=== PATIENT | female | born 1935 | race Caucasian/White ===

== ENCOUNTER → 2018-04-28 16:39 | Outpatient (CLI) | payer MEDICARE, BC, SELFPAY ==
[2018-04-28 18:16] LABS: ALB/GLOB Ratio 1.1 RATIO (0.9-2.4); AST(SGOT) 24 U/L (15-37); Alanine Aminotransfer ALT/SGPT 26 U/L (13-56); Albumin, Serum 3.9 g/dL (3.2-5.0); Alkaline Phosphatase 50 U/L (45-117); Anion Gap 7 (5-15); BUN 23 mg/dL (7-18); BUN/Creat Ratio 19.5 RATIO (10-20); Calcium,Total 8.6 mg/dL (8.5-10.1); Chloride 101 mmol/L (98-107); Creatinine, Serum 1.18 mg/dL (0.55-1.02); EST Glomerular Filtration Rate 47 mL/min (>60); Est Glom Filt Rate - Afr Amer 56 mL/min (>60); Globulin 3.7 g/dL (2.2-4.2); Glucose 94 mg/dL (74-106); Potassium 4.1 mmol/L (3.5-5.1); Protein, Total 7.6 g/dL (6.4-8.2); Sodium Level 135 mmol/L (136-145); Thyroid Stim Hormone (TSH) 1.78 uIU/mL (0.358-3.74)
[2018-04-28 18:44] LABS: Absolute Lymphocyte Count 2.34 X10^3/ul (0.83-4.51); Absolute Neutrophil Count 2.9 X10^3/uL (2.0-7.7); Basophil# 0.04 X10^3/uL; Basophil% 0.7 % (0-1); Eosinophil# 0.25 X10^3/uL; Eosinophils% 4.1 % (0-5); Hematocrit 33.4 % (37-47); Hemoglobin 11.3 g/dl (12.0-15.0); Lymphocyte # 2.34 X10^3/ul (4.0); Lymphocyte % 38.3 % (19-41); Mean Corp Hgb Conc 33.8 g/gl (32-36); Mean Corpuscular Volume 100.6 fL (81-99); Mean Platelet Vol. 8.9 fl (6.2-12.0); Monocyte# 0.52 X10^3/uL; Monocyte% 8.5 % (0-10); Neutrophil # 2.94 X10^3/uL (2.7-7.7); Neutrophil % 48.1 % (47-70); Platelet Count 273 K/mm3 (150-450); RBC Distribution Width CV 13.4 % (11.6-14.6); RBC Distribution Width SD 47.9 fl (35.1-43.9); Red Blood Count 3.32 M/mm3 (4.2-5.4); White Blood Count 6.1 K/mm3 (4.4-11.0)
[2018-04-28 19:04] LABS: POSITIVE COUNT NO; POSITIVE DIFFERENTIAL NO; POSITIVE MORPHOLOGY NO
[2018-04-29 20:43] LABS: Vitamin B12 683 pg/mL (211-911)
== END ==
PROVIDERS: Family Provider Family Medicine; PCP Family Medicine; Visit Provider Family Medicine
DX: M79.89 Other specified soft tissue disorders (principal)
CPT/HCPCS: 36415; 80053; 82607; 82746; 84443; 85025

== ENCOUNTER → 2018-05-20 14:07 | Outpatient (CLI) | payer MEDICARE, BC, SELFPAY ==
[2018-05-20 15:57] LABS: Absolute Lymphocyte Count 2.17 X10^3/ul (0.83-4.51); Absolute Neutrophil Count 3.1 X10^3/uL (2.0-7.7); Basophil# 0.04 X10^3/uL; Basophil% 0.6 % (0-1); Eosinophil# 0.41 X10^3/uL; Eosinophils% 6.4 % (0-5); Hematocrit 34.2 % (37-47); Hemoglobin 11.3 g/dl (12.0-15.0); Lymphocyte # 2.17 X10^3/ul (4.0); Mean Corpuscular Hgb 33.6 pg (27.0-32.0); Mean Corpuscular Volume 101.8 fL (81-99); Mean Platelet Vol. 8.8 fl (6.2-12.0); Monocyte# 0.63 X10^3/uL; Monocyte% 9.9 % (0-10); Neutrophil % 48.6 % (47-70); Platelet Count 278 K/mm3 (150-450); RBC Distribution Width CV 13.5 % (11.6-14.6); RBC Distribution Width SD 48.9 fl (35.1-43.9); Red Blood Count 3.36 M/mm3 (4.2-5.4); White Blood Count 6.4 K/mm3 (4.4-11.0)
[2018-05-20 15:59] LABS: POSITIVE COUNT NO; POSITIVE DIFFERENTIAL NO; POSITIVE MORPHOLOGY NO
[2018-05-20 16:02] LABS: ALB/GLOB Ratio 1.1 RATIO (0.9-2.4); AST(SGOT) 27 U/L (15-37); Alanine Aminotransfer ALT/SGPT 29 U/L (13-56); Albumin, Serum 4.1 g/dL (3.2-5.0); Alkaline Phosphatase 48 U/L (45-117); Anion Gap 7 (5-15); BUN 22 mg/dL (7-18); BUN/Creat Ratio 19.1 RATIO (10-20); Calcium,Total 9.1 mg/dL (8.5-10.1); Chloride 102 mmol/L (98-107); Creatinine, Serum 1.15 mg/dL (0.55-1.02); EST Glomerular Filtration Rate 48 mL/min (>60); Est Glom Filt Rate - Afr Amer 58 mL/min (>60); Globulin 3.8 g/dL (2.2-4.2); Glucose 90 mg/dL (74-106); Potassium 4.1 mmol/L (3.5-5.1); Protein, Total 7.9 g/dL (6.4-8.2); Sodium Level 135 mmol/L (136-145)
== END ==
PROVIDERS: Family Provider Family Medicine; PCP Family Medicine; Visit Provider Family Medicine
DX: K52.9 Noninfective gastroenteritis and colitis, unspecified (principal)
CPT/HCPCS: 36415; 80053; 85025

== ENCOUNTER 2018-09-01 11:58 | Observation (INO) | payer MEDICARE, BC, SELFPAY ==
[2018-09-01] VITALS (8 sets, daily range): BP systolic 109–140; BP diastolic 54–86; PULSE 59–72; RESP 16–18; TEMP 35.8–37.1; O2SAT 95–100; BMI 22.6; BMI 24.4
--- NOTE | 2018-09-01 12:19 | RAD_ITS ---
STUDY: X-RAY CHEST REASON FOR EXAM: Female, 83 years old. Syncope. Confusion. TECHNIQUE: Single AP portable view of the chest. COMPARISON: None. FINDINGS: EKG electrodes are seen. Scattered calcified granulomas. No acute abnormality is seen. There is no demonstrated pleural abnormality. Normal size heart. Normal mediastinum and jayshree. Normal visualized pulmonary arteries. There is atherosclerotic tortuosity of the aortic arch and descending thoracic aorta. Mild levoscoliosis. Normal visualized ribs, clavicles, and shoulders. There is no demonstrated abnormality of the visualized soft tissue structures of the upper abdomen. RAD/Chest 1 View (Portable) IMPRESSION: No acute abnormality is seen. Electronically Signed: Joao Yao MD at 13:44 EST Tel [phone], Service support ,
--- NOTE | 2018-09-01 12:19 | EKG12_ITS ---
Test Reason : Blood Pressure : / mmHG Vent. Rate : 060 BPM Atrial Rate : 288 BPM P-R Int : 000 ms QRS Dur : 062 ms QT Int : 426 ms P-R-T Axes : 000 011 013 degrees QTc Int : 426 ms Normal sinus rhythm Nonspecific ST abnormality Abnormal ECG Confirmed by JERAMY GRULLON, KAJAL ([id number]), legal editor YOAV FORD ([id number] on 09/04/2018 2:47:59 PM Referred By: MARCELA Confirmed By:KAJAL DESHPANDE MD
[2018-09-01] MEDS: 0.9% Normal Saline 1,000 ML 150 ML IV (13:15)
[2018-09-01 13:31] LABS: Basophil# 0.04 X10^3/uL; Basophil% 0.6 % (0-1); Eosinophil# 0.26 X10^3/uL; Eosinophils% 3.9 % (0-5); Hematocrit 33.2 % (37-47); Hemoglobin 11.1 g/dl (12.0-15.0); Mean Corp Hgb Conc 33.4 g/gl (32-36); Mean Corpuscular Hgb 33.3 pg (27.0-32.0); Mean Corpuscular Volume 99.7 fL (81-99); Mean Platelet Vol. 8.6 fl (6.2-12.0); Monocyte# 0.58 X10^3/uL; Monocyte% 8.7 % (0-10); Neutrophil # 3.97 X10^3/uL (2.7-7.7); Neutrophil % 59.5 % (47-70); POSITIVE COUNT NO; POSITIVE DIFFERENTIAL NO; POSITIVE MORPHOLOGY NO; Platelet Count 258 K/mm3 (150-450); RBC Distribution Width CV 13.7 % (11.6-14.6); RBC Distribution Width SD 48.2 fl (35.1-43.9); Red Blood Count 3.33 M/mm3 (4.2-5.4); White Blood Count 6.7 K/mm3 (4.4-11.0)
[2018-09-01 13:45] LABS: Anion Gap 9 (5-15); BUN 21 mg/dL (7-18); BUN/Creat Ratio 16.2 RATIO (10-20); Calcium,Total 8.8 mg/dL (8.5-10.1); Chloride 108 mmol/L (98-107); EST Glomerular Filtration Rate 42 mL/min (>60); Est Glom Filt Rate - Afr Amer 50 mL/min (>60); Glucose 91 mg/dL (74-106); Potassium 3.4 mmol/L (3.5-5.1); Sodium Level 140 mmol/L (136-145)
--- NOTE | 2018-09-01 14:52 | NURSING ---
PCU OBS SYNCOPE PAINTSIL
--- NOTE | 2018-09-01 14:53 | ED.DCSUM_ITS ---
- ER Visit Summary Date of Service: 09/01/18 Chief Complaint: [Syncope] History of Present Illness: The patient is a 83 F [presents to the emergency department with a syncopal episode that occurred around 11 AM today. Patient's daughter gives the history. Patient was with her daughter having lunch when the daughter noticed that patient was slumped over and unresponsive. Patient was diaphoretic. There is no seizure-like activity. She could not speak or follow commands. Symptoms lasted about 10-15 minutes and EMS was called. The daughter is worried about possibility of a stroke. Patient is never had a stroke before. Patient and not been ill recently. Patient does have a history of hypertension and history of dementia. On arrival to the emergency department the patient is back to her baseline. Patient denies any complaints. She denies any chest pain or palpitations. She denies any headache. She denies any focal weakness.] Physical Examination: [HEENT-PERRLA, EOMI. Cranial nerves II through XII grossly intact. TMs clear. Mucous membranes moist. No adenopathy. Cardiovascular-regular rate and rhythm without murmur or ectopy Lungs-clear to auscultation, chest wall stable without crepitus or subcu emphysema Abdomen-normoactive bowel sounds, soft, nontender, no rebound or rigidity, no peritoneal signs. Neuro vrng-hslngv-uuvb and heel oropeza testing within normal limits, negative Romberg, negative for drift, fundi benign Extremities-intact ?4, normal range of motion, normal pulses, atraumatic] Test Results: [EKG obtained arrival shows sinus rhythm with a rate of 60 bpm with some nonspecific ST changes. CBC with differential showed a white count 6.7, hemoglobin 11, hematocrit 33, platelets 258. Chemistries unremarkable. Troponin was less than 0.015. Chest x-ray was normal. Orthostatics were negative. Urinalysis is pending.] Emergency Department Course and Treatment: [Patient was given normal saline at 150 cc an hour] Treatment Plan: [Admit for observation given unknown etiology of patient's syncope] Disposition: [Admit] Impression: [Syncope-etiology uncertain] This note was generated with [employer] software. It may contain incorrect words, spelling, and punctuation that were not noted in review of the chart prior to signing ED Disposition - Plan for ED Patient: Chief Complaint: Other, Pain/Inj Referrals: Sophia Sutton MD [Primary Care Provider] -
[2018-09-01 14:57] LABS: Color, Urine Yellow (Yellow); Glucose, Dipstick Normal (Normal); Ketone-Dipstick Negative (Negative); Leukocyte Esterase-Dipstick 500 /ul (Negative); Nitrite-Dipstick Positive (Negative); Occult Blood-Urine 50 /ul (Negative); Protein-Dipstick 30 mg/dl (Negative); Urine Bilirubin Dipstick Negative (Negative); Urine Clarity Cloudy (Clear); Urine Urobilinogen Normal (Normal)
--- NOTE | 2018-09-01 14:57 | HP.PCM_ITS ---
Problem List (1) Syncope Status: Acute Qualifiers: Syncope type: unspecified Qualified Code(s): R55 - Syncope and collapse (2) Dementia Status: Chronic Qualifiers: Dementia type: Alzheimer's disease Alzheimer's disease onset: late-onset Dementia behavioral disturbance: with behavioral disturbance Qualified Code(s): G30.1 - Alzheimer's disease with late onset; F02.81 - Dementia in other diseases classified elsewhere with behavioral disturbance (3) Hypertension Status: Chronic Qualifiers: Hypertension type: essential hypertension Qualified Code(s): I10 - Essential (primary) hypertension (4) UTI (urinary tract infection) Status: Acute (5) Hypokalemia Status: Acute (6) ALISON (acute kidney injury) Status: Acute History of Present Illness Date of Admission: 09/01/18 Chief Complaint: Syncope - 1 day The patient is a 83 year old F with past medical history of Alzheimer's dementia, hypertension who lives with her and a daughter comes in with an episode of syncope. History was taken from the and daughter. No reported history of syncope prior to this admission. Patient was out at lunch with her daughter, had no yet eaten anything when she had an episode of unresponsiveness, not associated with any seizure-like activity. This lasted for about 10-15 minutes. She did not hit her head. She was helped to a more comfortable chair and she seemed to come around and seemed to know where she is. Patient is oriented to self at baseline. No reported history of illnesses prior to this. No sick contact. On arrival to the ED, vitals were 90 6.5F, heart rate 61, blood pressure 140/59, respiratory rate of 70, SPO2 100% on room air. Admitting blood work showed RBC count of 6.7, hemoglobin 11.1, which is close to her baseline, elevated MCV, MCH, BMP shows sodium 140, potassium 3.4, chloride 108, bicarbonate 23, BUN 21, creatinine 1.30, baseline of 0.9-1.0. UA showed cloudy urine, nitrite positive, leukocyte esterase 500, WBC count 50-100. Admitting chest x-ray showed no acute cardiopulmonary process. Past Medical History Past Medical History (Chronic Problems): Chronic Problems Dementia (Chronic) Hypertension (Chronic) Allergies No Known Allergies Allergy (Verified 09/01/18 12:07) Home Medications: Ambulatory Orders Medication Instructions Recorded Amlodipine [Norvasc] 2.5 mg PO DAILY 09/01/18 Galantamine HBr [Razadyne] 8 mg PO BID 09/01/18 Losartan Potassium 100 mg PO DAILY 09/01/18 Metoprolol Tartrate [Lopressor 100 mg PO BID 09/01/18 (beta gianna)] Quetiapine Fumarate [Seroquel] 25 mg PO BID 09/01/18 Surgical History: cholecystectomy, hysterectomy Psychiatric History: No pertinent psych hx 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 VTE Information - Inpt Only VTE Present on Admission: No VTE Pharm Prophylaxis ordered?: Yes Patient Problems: Active and Suspected Problems Syncope (Acute) UTI (urinary tract infection) (Acute) Hypokalemia (Acute) ALISON (acute kidney injury) (Acute) - Physical Exam General: Alert, Cooperative, - - Appears comfortable, oriented to self only but not to time, place HEENT: Atraumatic, PERRLA, EOMI, Normocephalic Oral: Moist Mucosa Neck: Supple, No JVD, Negative Carotid Bruits Lungs: Clear to auscultation, Normal air movement Cardiovascular: Regular rate, Regular Rhythm, Normal S1, Normal S2, No murmurs Abdomen: Bowel Sounds Present, Soft, Non Tender, Non-Distended, No Hepato- splenomegaly Extremities: No edema Skin: No rashes, No breakdown Musculoskeletal: No Tenderness to Palpation of Joints or Extremities Lymphatic: No Cervical, Supraclavicular, or Inguinal Adenopathy Neurological: Cranial nerves II-XII grossly intact, Neuro grossly intact Psych/Mental Status: Normal Affect, Appropriate Vital Signs Temp Pulse Resp BP Pulse Ox 96.5 F L 64 16 130/75 H 99 09/01/18 11:59 09/01/18 14:15 09/01/18 12:37 09/01/18 14:15 09/01/18 12:37 Oxygen Delivery Method Room Air Weight: 63.503 kg Body Mass Index (BMI) 22.6 Laboratory Tests Past 24 Hrs 09/01/18 09/01/18 09/01/18 13:20 13:20 14:50 WBC 6.7 RBC 3.33 L Hgb 11.1 L Hct 33.2 L MCV 99.7 H MCH 33.3 H MCHC 33.4 RDW 13.7 RDW Differential 48.2 H Plt Count 258 MPV 8.6 Immature Gran % (Auto) 0.300 Neut % (Auto) 59.5 Lymph % (Auto) 27.0 [place] % (Auto) 8.7 Eos % (Auto) 3.9 Baso % (Auto) 0.6 Absolute Neuts (auto) 4.0 Absolute Lymphs (auto) 1.80 Total Counted Not Reportable Sodium 140 Potassium 3.4 L Chloride 108 H Carbon Dioxide 23.0 Anion Gap 9 BUN 21 H Creatinine 1.30 H Estim Creat Clear Calc 30.70 Est GFR (MDRD) Af Amer 50 L Est GFR (MDRD) Non-Af 42 L BUN/Creatinine Ratio 16.2 Glucose 91 Calcium 8.8 Troponin I < 0.015 Urine Color Pending Urine Clarity Pending Urine pH Pending Ur Specific [place] Pending Urine Protein Pending Urine Glucose (UA) Pending Urine Ketones Pending Urine Occult Blood Pending Urine Nitrite Pending Urine Bilirubin Pending Urine Urobilinogen Pending Ur Leukocyte Esterase Pending Urine RBC Pending Urine WBC Pending Ur Squamous Epith Cells Pending Urine Bacteria Pending Urine Mucus Pending Assessment/Plan All Active Problems Syncope (Acute) UTI (urinary tract infection) (Acute) Hypokalemia (Acute) ALISON (acute kidney injury) (Acute) 83 year old F with past medical history of Alzheimer's dementia, hypertension who lives with her and a daughter comes in with an episode of syncope. 1. Syncope, first episode, likely vasovagal, orthostatic vitals were negative in the ED, EKG shows no acute ST-T changes, troponins are negative, no prior illness Plan: Admit to PCU, monitor on telemetry, 2D echo, trend cardiac enzymes, IV fluids, orthostatic vitals per shift x 24 hours, PT and OT to evaluate and treat 2. Possible UTI, patient unable to say if she is symptomatic or not, UA suggestive, will get urine cultures, give fosfomycin 3 g x1 3. Hypokalemia, K is 3.4, replaced, repeat labs in a.m. 4. AK I secondary dehydration, creatinine elevated at 1.3, baseline 0.9, will put on IV fluids, repeat labs in a.m. 5. Hypertension, controlled, continue on home blood pressure regimen, continue to monitor vitals 6. Alzheimer's dementia with behavioral health, on galantamine and Seroquel, continue same 7. DVT prophylaxis with heparin subcu 8. Code status - family has paperwork and know she is a DNR; daughter will go home and bring back paperwork. Code Visit OBSV E&M: 55200 Initial observation care L3
[2018-09-01 15:03] LABS: Bacteria 2+ /hpf (None Seen); Mucous, Urine RARE /hpf (<or=2+); Red Blood Cells-Urine 0-5 SEEN /hpf (0-5); Squamous Epithelial Cells - UA 5-10 SEEN /hpf (5-10); White Blood Cells 50-100 SEEN /hpf (0-5)
--- NOTE | 2018-09-01 16:36 | ECHOD_ITS ---
Reason For Study: SYNCOPE Procedure This was a 2D Doppler, Color Flow transthoracic echocardiogram. The study was technically difficult. Pt in a confused state for exam. Exam performed portable in patient room. Left Ventricle Normal size and thickness. The estimated ejection fraction is 65 %. Stage 2 diastolic dysfunction. No regional wall motion abnormalities noted. Right Ventricle Normal size and thickness. Normal systolic function. Atria Normal left atrium. Normal right atrium. Normal atrial septum. Mitral Valve The mitral valve is structurally normal. No prolapse or stenosis seen. Trivial mitral valve insufficiency. Tricuspid Valve Normal tricuspid valve. Trivial tricuspid valve insufficiency. Right ventricular systolic pressure estimated to be 25 mmHg. Aortic Valve Trisinus/trileaflet aortic valve. Mild diffuse aortic valve thickening. Trivial aortic valve insufficiency. Pulmonic Valve Normal pulmonic valve. Great Vessels Normal aortic root. Normal arch. Normal inferior vena cava. Inferior vena cava collapse with sniff. Pericardium/Pleural No pericardial effusion. MMode/2D Measurements & Calculations LVIDd: 4.6 cm IVSd: 0.68 cm Ao root diam: 3.4 cm LVIDs: 2.8 cm LVPWd: 0.76 cm RVDd: 3.4 cm FS: 39.5 % LAV(MOD-bp): 25.4 ml LA A4 area: 9.4 cm2 LA dimension(2D): 3.3 cm LAV(MOD-bp) Indexed: 15.8 ml/m2 LAV(MOD-sp2): 28.7 ml LAV(MOD-sp4): 18.1 ml RA A4 area: 9.7 cm2 Time Measurements MV dec time: 0.18 sec Doppler Measurements & Calculations MV E max jatinder: 84.2 cm/sec Lat Peak E' Jatinder: 7.6 cm/sec Med Peak E' Jatinder: 8.6 cm/sec MV A max jatinder: 69.0 cm/sec E/E' lat: 11.1 E/E' med: 9.8 MV E/A: 1.2 Ao V2 max: 119.6 cm/sec LV V1 max: 117.9 cm/sec PA V2 max: 73.0 cm/sec Ao max P.7 mmHg LV V1 max P.6 mmHg PI end-d jatinder: 78.2 cm/sec TR max jatinder: 222.5 cm/sec TR max P.9 mmHg Interpretation Summary The estimated ejection fraction is 65 %. Stage 2 diastolic dysfunction. Trivial mitral valve insufficiency. Trivial tricuspid valve insufficiency. Right ventricular systolic pressure estimated to be 25 mmHg. Trivial aortic valve insufficiency. There is no comparison study available. Ordering Physician: Rosenda Romero Referring Physician: JESSICA HORNER Performed By: Heidi Ware, PATIENCE, RVT
[2018-09-01] MEDS: QUEtiapine 25 MG Tablet PO (17:35)
[2018-09-01] MEDS: FOSFOMYCIN TROMETHAMINE 3 GM PACKET PO (17:48)
[2018-09-01] MEDS: Haloperidol Lactate 5 MG/ML Vial 1 MG IV (18:13)
[2018-09-01] MEDS: Galantamine Hydrobromide 4 MG Tablet 8 MG PO (18:14)
--- NOTE | 2018-09-01 18:26 | NURSING ---
This RN responded to assist with lab draw. Patient became increasingly agitated and combative (kicking and scratching nursing staff). Paatient then got out of bed and refused to sit down. Many attempts were and to redirect and distract. This RN was eventually able to assist patient to chair and provide medications. Patient then used the restroom and returned to bed agreeably. Left with patient resting quietly, bed exit on. Patient's and sister at bedside.
[2018-09-01] MEDS: 0.9% Normal Saline 1,000 ML 75 ML IV (19:51)
[2018-09-01] MEDS: Metoprolol Tartrate 100 MG Tablet PO (21:02)
[2018-09-01] MEDS: Heparin Injection (Vial) 5,000 UNIT/ML VIAL 5000 UNIT SC (21:02)
[2018-09-02] VITALS (7 sets, daily range): BP systolic 122–123; BP diastolic 58–66; PULSE 53–66; RESP 14–16; TEMP 36.8; O2SAT 96–97
--- NOTE | 2018-09-02 05:55 | EKG12_ITS ---
Test Reason : Blood Pressure : / mmHG Vent. Rate : 056 BPM Atrial Rate : 056 BPM P-R Int : 178 ms QRS Dur : 066 ms QT Int : 432 ms P-R-T Axes : 090 -08 001 degrees QTc Int : 416 ms Sinus bradycardia Otherwise normal ECG When compared with ECG of 01-SEP-2018 12:41, MANUAL COMPARISON REQUIRED, DATA IS UNCONFIRMED Confirmed by JERAMY GRULLON, KAJAL ([id number]), non linear editor YOAV FORD ([id number]) on 09/07/2018 2:05:24 PM Referred By: Confirmed By:KAJAL DESHPANDE MD
[2018-09-02] MEDS: Heparin Injection (Vial) 5,000 UNIT/ML VIAL 5000 UNIT SC (06:09)
[2018-09-02 06:18] LABS: BUN 17 mg/dL (7-18); Creatinine, Serum 1.26 mg/dL (0.55-1.02); EST Glomerular Filtration Rate 43 mL/min (>60); Estimated Creatinine Clearance 26.76 ml/min; Glucose 97 mg/dL (74-106)
[2018-09-02 06:19] LABS: Anion Gap 10 (5-15); BUN/Creat Ratio 13.5 RATIO (10-20); Calcium,Total 7.9 mg/dL (8.5-10.1); Chloride 112 mmol/L (98-107); Est Glom Filt Rate - Afr Amer 52 mL/min (>60); Potassium 3.6 mmol/L (3.5-5.1); Sodium Level 143 mmol/L (136-145)
[2018-09-02] MEDS: 0.9% Normal Saline 1,000 ML 75 ML IV (09:26)
[2018-09-02] MEDS: Galantamine Hydrobromide 4 MG Tablet 8 MG PO (09:42)
[2018-09-02] MEDS: amLODIPine 2.5 MG Tablet PO (09:42)
[2018-09-02] MEDS: Metoprolol Tartrate 100 MG Tablet PO (09:42)
[2018-09-02] MEDS: QUEtiapine 25 MG Tablet PO (09:42)
[2018-09-02] MEDS: Losartan Potassium 100 MG Tablet PO (09:42)
--- NOTE | 2018-09-02 10:49 | DCINST_ITS ---
- Discharge Diagnoses Current Active Problems: Current Active and Chronic Problems Syncope (Acute) Dementia (Chronic) Hypertension (Chronic) UTI (urinary tract infection) (Acute) Hypokalemia (Acute) ALISON (acute kidney injury) (Acute) You will use the following diet at home:: No restrictions - drink more non-caffeinated fluid, preferably water (strive for 8 8 oz glasses/day) Your food should be the consistency of: Regular Your liquids should be the consistency of: Regular/Thin Discharge Activity: Return to Normal Activity Call your doctor if you observe: Fever of 101 or Higher, Inability to urinate, Shortness of breath, - - increased confusion Allergies/Adverse Reactions: Allergies No Known Allergies Allergy (Verified 09/01/18 12:07) Medications to take at Discharge Amlodipine [Norvasc] 2.5 mg PO DAILY 09/01/18 Galantamine HBr [Razadyne] 8 mg PO BID 09/01/18 Losartan Potassium 100 mg PO DAILY 09/01/18 Metoprolol Tartrate [Lopressor (beta gianna)] 100 mg PO BID 09/01/18 Quetiapine Fumarate [Seroquel] 25 mg PO BID 09/01/18 Primary Care Physician: Sophia Sutton MD [Primary Care Provider] - Within 2 Weeks Test Results: Test results from this visit will be discussed in further detail at your follow- up appointment, if applicable. Proposed Discharge Date: 09/02/18
--- NOTE | 2018-09-02 10:49 | PCM.DC.SUM ---
Discharge Date and Diagnosis - Problem List Patient Problems: Active and Suspected Problems Syncope (Acute) UTI (urinary tract infection) (Acute) Hypokalemia (Acute) Date of Admission: 09/01/18 Date of Discharge: 09/02/18 - Primary Discharge Diagnosis Active and Suspected Problems Syncope (Acute) UTI (urinary tract infection) (Acute) Hypokalemia (Acute) ALISON (acute kidney injury) (Acute) - Secondary Discharge Diagnosis Chronic Problems Dementia (Chronic) Hypertension (Chronic) Hospital Course and Treatment Imaging Results: Clinical Impression(s) from Imaging Studies Chest X-Ray 09/01/18 12:19 IMPRESSION: No acute abnormality is seen. Electronically Signed: Joao Yao MD at 13:44 EST Tel [phone], Service support , Operations: None Procedures: None Summary of Care Provided: The patient is a 83 year old F presents with a syncopal episode. Patient was brought to the hospital and evaluated. Patient underwent a workup that did show a UTI based on urinalysis study. Patient did have an elevated creatinine of 1.3 but really not far off of her baseline of 1.15. Patient does have a chronic kidney disease and is felt that acute kidney injury was ruled out. Patient did have orthostatic vital signs that were normal. Patient did receive a one-time dose of fosfomycin for the urinary tract infection. Patient does have underlying dementia which, gets her overall long-term management. Discussed with the family that this is felt likely to be a vasovagal episode due to urinary tract infection. Advised that symptoms of urinary tract infection with dementia may be more atypical may be manifested as increased confusion. Increased confusion could be more listlessness, versus more agitation versus other. Explained that they are showing continued signs of that that that could be a sign of tract infection though left with a caveat that it is really nonspecific and difficult to ascertain with those that with dementia. Patient is otherwise doing well and will be discharged family is instructed for the patient to drink more non-caffeinated fluid per day. [] Patient Problems: Active and Suspected Problems Syncope (Acute) UTI (urinary tract infection) (Acute) Hypokalemia (Acute) - Physical Exam General: Alert, Confused, - - Pleasant. HEENT: Normocephalic Oral: Moist Mucosa, No Gingival or Mucosal Lesions/ Ulcerations Lungs: Clear to auscultation, Normal air movement, No rhonchi, No wheeze Cardiovascular: Regular rate, Regular Rhythm, Normal S1, Normal S2, No murmurs Abdomen: Bowel Sounds Present, Soft, Non Tender, Non-Distended, No Hepato-splenomegaly Extremities: No edema, No Calf Tenderness Vital Signs Temp Pulse Resp BP Pulse Ox 36.8 C 65 16 123/66 H 97 09/02/18 09:28 09/02/18 09:42 09/02/18 09:28 09/02/18 09:42 09/02/18 09:28 Oxygen Delivery Method Room Air Weight: 60.6 kg Body Mass Index (BMI) 24.4 Intake and Output for Last 24 Hours 08/31/18 09/01/18 09/02/18 23:59 23:59 23:59 Intake Total 100 / 100 1407 / 1407 Balance 100 / 100 1407 / 1407 Laboratory Tests Past 24 Hrs 09/01/18 09/01/18 09/01/18 13:20 13:20 14:50 WBC 6.7 RBC 3.33 L Hgb 11.1 L Hct 33.2 L MCV 99.7 H MCH 33.3 H MCHC 33.4 RDW 13.7 RDW Differential 48.2 H Plt Count 258 MPV 8.6 Immature Gran % (Auto) 0.300 Neut % (Auto) 59.5 Lymph % (Auto) 27.0 [place] % (Auto) 8.7 Eos % (Auto) 3.9 Baso % (Auto) 0.6 Absolute Neuts (auto) 4.0 Absolute Lymphs (auto) 1.80 Total Counted Not Reportable Sodium 140 Potassium 3.4 L Chloride 108 H Carbon Dioxide 23.0 Anion Gap 9 BUN 21 H Creatinine 1.30 H Estim Creat Clear Calc 30.70 Est GFR (MDRD) Af Amer 50 L Est GFR (MDRD) Non-Af 42 L BUN/Creatinine Ratio 16.2 Glucose 91 Calcium 8.8 Troponin I < 0.015 Urine Color Yellow Urine Clarity Cloudy Urine pH 7.0 Ur Specific [place] 1.010 Urine Protein 30 H Urine Glucose (UA) Normal Urine Ketones Negative Urine Occult Blood 50 H Urine Nitrite Positive H Urine Bilirubin Negative Urine Urobilinogen Normal Ur Leukocyte Esterase 500 H Urine RBC 0-5 SEEN Urine WBC 50-100 SEEN Ur Squamous Epith Cells 5-10 SEEN Urine Bacteria 2+ Urine Mucus RARE 09/01/18 09/01/18 09/02/18 20:38 23:26 05:06 WBC RBC Hgb Hct MCV MCH MCHC RDW RDW Differential Plt Count MPV Immature Gran % (Auto) Neut % (Auto) Lymph % (Auto) [place] % (Auto) Eos % (Auto) Baso % (Auto) Absolute Neuts (auto) Absolute Lymphs (auto) Total Counted Sodium 143 Potassium 3.6 Chloride 112 H Carbon Dioxide 21.0 Anion Gap 10 BUN 17 Creatinine 1.26 H Estim Creat Clear Calc 26.76 Est GFR (MDRD) Af Amer 52 L Est GFR (MDRD) Non-Af 43 L BUN/Creatinine Ratio 13.5 Glucose 97 Calcium 7.9 L Troponin I < 0.015 < 0.015 Urine Color Urine Clarity Urine pH Ur Specific [place] Urine Protein Urine Glucose (UA) Urine Ketones Urine Occult Blood Urine Nitrite Urine Bilirubin Urine Urobilinogen Ur Leukocyte Esterase Urine RBC Urine WBC Ur Squamous Epith Cells Urine Bacteria Urine Mucus Discharge Diet: No Restrictions Discharge Activity: Return to Normal Activity Call your doctor if you observe: Fever of 101 or Higher, Inability to urinate, Shortness of breath, - - increased confusion Home Medications: Medications to take at Discharge Amlodipine [Norvasc] 2.5 mg PO DAILY 09/01/18 Galantamine HBr [Razadyne] 8 mg PO BID 09/01/18 Losartan Potassium 100 mg PO DAILY 09/01/18 Metoprolol Tartrate [Lopressor (beta gianna)] 100 mg PO BID 09/01/18 Quetiapine Fumarate [Seroquel] 25 mg PO BID 09/01/18 Primary Care Physician: Sophia Sutton MD [Primary Care Provider] - Within 2 Weeks Disposition: Home Minutes spent on discharge:: 28 Patient Condition:: Good Medical Necessity - Tobacco Use Smoking Status: Former smoker Tobacco Use: Non-smoker Meaningful Use Info Meaningful Use Diagnoses (Choose all that apply): None applicable Code Visit OBSV E&M: 17790 Observation care discharge
--- NOTE | 2018-09-02 10:53 | DS.PCM_ITS ---
Discharge Date and Diagnosis - Problem List Patient Problems: Active and Suspected Problems Syncope (Acute) UTI (urinary tract infection) (Acute) Hypokalemia (Acute) Date of Admission: 09/01/18 Date of Discharge: 09/02/18 - Primary Discharge Diagnosis Active and Suspected Problems Syncope (Acute) UTI (urinary tract infection) (Acute) Hypokalemia (Acute) ALISON (acute kidney injury) (Acute) - Secondary Discharge Diagnosis Chronic Problems Dementia (Chronic) Hypertension (Chronic) Hospital Course and Treatment Imaging Results: Clinical Impression(s) from Imaging Studies Chest X-Ray 09/01/18 12:19 IMPRESSION: No acute abnormality is seen. Electronically Signed: Joao Yao MD at 13:44 EST Tel [phone], Service support , Operations: None Procedures: None Summary of Care Provided: The patient is a 83 year old F presents with a syncopal episode. Patient was brought to the hospital and evaluated. Patient underwent a workup that did show a UTI based on urinalysis study. Patient did have an elevated creatinine of 1.3 but really not far off of her baseline of 1.15. Patient does have a chronic kidney disease and is felt that acute kidney injury was ruled out. Patient did have orthostatic vital signs that were normal. Patient did receive a one-time dose of fosfomycin for the urinary tract infection. Patient does have underlying dementia which, gets her overall long-term management. Discussed with the family that this is felt likely to be a vasovagal episode due to urinary tract infection. Advised that symptoms of urinary tract infection with dementia may be more atypical may be manifested as increased confusion. Increased confusion could be more listlessness, versus more agitation versus other. Explained that they are showing continued signs of that that that could be a sign of tract infection though left with a caveat that it is really nonspecific and difficult to ascertain with those that with dementia. Patient is otherwise doing well and will be discharged family is instructed for the patient to drink more non-caffeinated fluid per day. [] Patient Problems: Active and Suspected Problems Syncope (Acute) UTI (urinary tract infection) (Acute) Hypokalemia (Acute) - Physical Exam General: Alert, Confused, - - Pleasant. HEENT: Normocephalic Oral: Moist Mucosa, No Gingival or Mucosal Lesions/ Ulcerations Lungs: Clear to auscultation, Normal air movement, No rhonchi, No wheeze Cardiovascular: Regular rate, Regular Rhythm, Normal S1, Normal S2, No murmurs Abdomen: Bowel Sounds Present, Soft, Non Tender, Non-Distended, No Hepato- splenomegaly Extremities: No edema, No Calf Tenderness Vital Signs Temp Pulse Resp BP Pulse Ox 36.8 C 65 16 123/66 H 97 09/02/18 09:28 09/02/18 09:42 09/02/18 09:28 09/02/18 09:42 09/02/18 09:28 Oxygen Delivery Method Room Air Weight: 60.6 kg Body Mass Index (BMI) 24.4 Intake and Output for Last 24 Hours 08/31/18 09/01/18 09/02/18 23:59 23:59 23:59 Intake Total 100 / 100 1407 / 1407 Balance 100 / 100 1407 / 1407 Laboratory Tests Past 24 Hrs 09/01/18 09/01/18 09/01/18 13:20 13:20 14:50 WBC 6.7 RBC 3.33 L Hgb 11.1 L Hct 33.2 L MCV 99.7 H MCH 33.3 H MCHC 33.4 RDW 13.7 RDW Differential 48.2 H Plt Count 258 MPV 8.6 Immature Gran % (Auto) 0.300 Neut % (Auto) 59.5 Lymph % (Auto) 27.0 [place] % (Auto) 8.7 Eos % (Auto) 3.9 Baso % (Auto) 0.6 Absolute Neuts (auto) 4.0 Absolute Lymphs (auto) 1.80 Total Counted Not Reportable Sodium 140 Potassium 3.4 L Chloride 108 H Carbon Dioxide 23.0 Anion Gap 9 BUN 21 H Creatinine 1.30 H Estim Creat Clear Calc 30.70 Est GFR (MDRD) Af Amer 50 L Est GFR (MDRD) Non-Af 42 L BUN/Creatinine Ratio 16.2 Glucose 91 Calcium 8.8 Troponin I < 0.015 Urine Color Yellow Urine Clarity Cloudy Urine pH 7.0 Ur Specific [place] 1.010 Urine Protein 30 H Urine Glucose (UA) Normal Urine Ketones Negative Urine Occult Blood 50 H Urine Nitrite Positive H Urine Bilirubin Negative Urine Urobilinogen Normal Ur Leukocyte Esterase 500 H Urine RBC 0-5 SEEN Urine WBC 50-100 SEEN Ur Squamous Epith Cells 5-10 SEEN Urine Bacteria 2+ Urine Mucus RARE 09/01/18 09/01/18 09/02/18 20:38 23:26 05:06 WBC RBC Hgb Hct MCV MCH MCHC RDW RDW Differential Plt Count MPV Immature Gran % (Auto) Neut % (Auto) Lymph % (Auto) [place] % (Auto) Eos % (Auto) Baso % (Auto) Absolute Neuts (auto) Absolute Lymphs (auto) Total Counted Sodium 143 Potassium 3.6 Chloride 112 H Carbon Dioxide 21.0 Anion Gap 10 BUN 17 Creatinine 1.26 H Estim Creat Clear Calc 26.76 Est GFR (MDRD) Af Amer 52 L Est GFR (MDRD) Non-Af 43 L BUN/Creatinine Ratio 13.5 Glucose 97 Calcium 7.9 L Troponin I < 0.015 < 0.015 Urine Color Urine Clarity Urine pH Ur Specific [place] Urine Protein Urine Glucose (UA) Urine Ketones Urine Occult Blood Urine Nitrite Urine Bilirubin Urine Urobilinogen Ur Leukocyte Esterase Urine RBC Urine WBC Ur Squamous Epith Cells Urine Bacteria Urine Mucus Discharge Diet: No Restrictions Discharge Activity: Return to Normal Activity Call your doctor if you observe: Fever of 101 or Higher, Inability to urinate, Shortness of breath, - - increased confusion Home Medications: Medications to take at Discharge Amlodipine [Norvasc] 2.5 mg PO DAILY 09/01/18 Galantamine HBr [Razadyne] 8 mg PO BID 09/01/18 Losartan Potassium 100 mg PO DAILY 09/01/18 Metoprolol Tartrate [Lopressor (beta gianna)] 100 mg PO BID 09/01/18 Quetiapine Fumarate [Seroquel] 25 mg PO BID 09/01/18 Primary Care Physician: Sophia Sutton MD [Primary Care Provider] - Within 2 Weeks Disposition: Home Minutes spent on discharge:: 28 Patient Condition:: Good Medical Necessity - Tobacco Use Smoking Status: Former smoker Tobacco Use: Non-smoker Meaningful Use Info Meaningful Use Diagnoses (Choose all that apply): None applicable Code Visit OBSV E&M: 01472 Observation care discharge
--- NOTE | 2018-09-02 11:05 | CASEMGMT ---
This RN CM to room to check with pt/family for any needs prior to discharge. Pt does have dementia and lives with daughter. Daughter and family states no further concerns/needs at this time and are ok with pt going home at discharge. Sudha RN CM
--- NOTE | 2018-09-02 11:40 | NURSING ---
Family at bedside. Discharge teaching completed. Family voices understanding of same.
--- NOTE | 2018-09-02 11:50 | NURSING ---
Patient discharged. Dr. Montes notified that patient's urine culture came back E-coli. Per Dr. Montes, patient received x1 dose of monurol yesterday. No need for further antibiotics.
== END 2018-09-02 10:48 | disposition home or self-care (01) ==
LOC: ED 15:04 → PCU 15:08
PROVIDERS: Admitting Provider Internal Medicine; Emergency Provider Emergency Medicine; Family Provider Family Medicine; PCP Family Medicine
DX: R55 Syncope and collapse (principal); E87.6 Hypokalemia; N39.0 Urinary tract infection, site not specified; Z79.899 Other long term (current) drug therapy; G30.9 Alzheimer's disease, unspecified; F02.80 Dementia in other diseases classified elsewhere, unspecified severity, without behavioral disturbance, psychotic disturbance, mood disturbance, and anxiety; Z87.891 Personal history of nicotine dependence; E86.0 Dehydration; I12.9 Hypertensive chronic kidney disease with stage 1 through stage 4 chronic kidney disease, or unspecified chronic kidney disease; N18.9 Chronic kidney disease, unspecified
CPT/HCPCS: 36415; 71045; 80048; 81001; 84484; 85025; 87086; 87088; 87186; 93005; 93306; 96361; 96372; 96374; 97161; 97165; 99218; 99285; J7030; A4216; G0378

== ENCOUNTER 2018-11-02 11:13 | Emergency (ER) | payer MEDICARE, BC, SELFPAY ==
[2018-11-02 11:14] VITALS: BP 136/74; PULSE 59; RESP 18; TEMP 36.6; O2SAT 99; BMI 25.4
--- NOTE | 2018-11-02 11:39 | EKG12_ITS ---
Test Reason : SYNCOPE Blood Pressure : / mmHG Vent. Rate : 059 BPM Atrial Rate : 267 BPM P-R Int : 000 ms QRS Dur : 068 ms QT Int : 432 ms P-R-T Axes : 000 -01 033 degrees QTc Int : 427 ms Normal sinus rhythm Abnormal ECG Confirmed by JERAMY GRULLON, KAJAL ([id number]), editor news YOAV FORD ([id number]) on 11/03/2018 5:24:35 PM Referred By: PATRICIA Confirmed By:KAJAL DESHPANDE MD
--- NOTE | 2018-11-02 12:10 | RAD_ITS ---
STUDY: X-RAY CHEST REASON FOR EXAM: Female, 83 years old. Confusion. Syncopal episode. TECHNIQUE: AP and lateral views of the chest. COMPARISON: Comparison is made with prior study dated September 01, 2018. FINDINGS: EKG electrodes are seen. The lungs are clear and expanded. Scattered calcified granulomas. There is no demonstrated pleural abnormality. Normal size heart. Normal mediastinum and jayshree. Normal visualized pulmonary arteries. There is atherosclerotic tortuosity of the aortic arch and descending thoracic aorta. Normal visualized thoracic spine. Normal visualized ribs, clavicles, and shoulders. There is no demonstrated abnormality of the visualized soft tissue structures of the upper abdomen. RAD/Chest PA and Lateral IMPRESSION: No acute abnormality is seen. Electronically Signed: Joao Yao MD at 12:36 EST Tel [phone], Service support ,
[2018-11-02 12:18] LABS: Absolute Lymphocyte Count 2.25 X10^3/ul (0.83-4.51); Absolute Neutrophil Count 4.3 X10^3/uL (2.0-7.7); Basophil# 0.02 X10^3/uL; Basophil% 0.3 % (0-1); Eosinophil# 0.32 X10^3/uL; Eosinophils% 4.4 % (0-5); Hematocrit 34.4 % (37-47); Hemoglobin 11.1 g/dl (12.0-15.0); Lymphocyte # 2.25 X10^3/ul (4.0); Lymphocyte % 30.8 % (19-41); Mean Corp Hgb Conc 32.3 g/gl (32-36); Mean Corpuscular Hgb 32.5 pg (27.0-32.0); Mean Corpuscular Volume 100.6 fL (81-99); Mean Platelet Vol. 8.9 fl (6.2-12.0); Monocyte% 5.5 % (0-10); Neutrophil # 4.29 X10^3/uL (2.7-7.7); Neutrophil % 58.7 % (47-70); Platelet Count 237 K/mm3 (150-450); RBC Distribution Width CV 14.3 % (11.6-14.6); RBC Distribution Width SD 52.7 fl (35.1-43.9); Red Blood Count 3.42 M/mm3 (4.2-5.4); White Blood Count 7.3 K/mm3 (4.4-11.0)
[2018-11-02 12:26] LABS: POSITIVE COUNT NO; POSITIVE DIFFERENTIAL NO; POSITIVE MORPHOLOGY NO
[2018-11-02 12:34] LABS: Anion Gap 11 (5-15); BUN 25 mg/dL (7-18); BUN/Creat Ratio 17.9 RATIO (10-20); Calcium,Total 9.1 mg/dL (8.5-10.1); Chloride 105 mmol/L (98-107); EST Glomerular Filtration Rate 38 mL/min (>60); Est Glom Filt Rate - Afr Amer 46 mL/min (>60); Estimated Creatinine Clearance 22.98 ml/min; Glucose 142 mg/dL (74-106); Sodium Level 138 mmol/L (136-145)
[2018-11-02 13:10] VITALS: BP 109/80; PULSE 63; RESP 17; O2SAT 99
[2018-11-02 13:41] LABS: Color, Urine Yellow (Yellow); Glucose, Dipstick Normal (Normal); Ketone-Dipstick Negative (Negative); Leukocyte Esterase-Dipstick 100 /ul (Negative); Nitrite-Dipstick Positive (Negative); Occult Blood-Urine 25 /ul (Negative); Protein-Dipstick Negative (Negative); Urine Bilirubin Dipstick Negative (Negative); Urine Clarity Cloudy (Clear); Urine Urobilinogen Normal (Normal); Urine pH 6.5 (5.0 - 8.0)
[2018-11-02 13:57] LABS: Bacteria 4+ /hpf (None Seen); Mucous, Urine RARE /hpf (<or=2+); Red Blood Cells-Urine 5-10 SEEN /hpf (0-5); Squamous Epithelial Cells - UA 0-5 SEEN /hpf (5-10); White Blood Cells 0-5 SEEN /hpf (0-5)
--- NOTE | 2018-11-02 14:37 | ED.DCSUM_ITS ---
- ER Visit Summary Date of Service: 11/02/18 Chief Complaint: Syncope History of Present Illness: The patient is a 83 F who states that she had a syncopal episode today. Family brings her in. Reportedly she was sitting on the couch and her noticed that she slumped over and fell to the ground. She states she did not injure herself during this fall. denies that she was sweaty or pale. Patient herself does not recall any of the events. She passed out shortly before and was admitted to the hospital. She had an echocardiogram was also diagnosed with a urinary tract infection. She is to supposed to be seen her family doctor today. Chest pain or shortness of breath. Physical Examination: Afebrile vital signs stable Gen: Well-nourished well-developed Head: Normocephalic atraumatic Eyes: Perrl EOMI ENT: TMs clear no rhinorrhea moist mucous membranes Neck: Supple no lymphadenopathy no JVD nontender CVS: Regular rate rhythm no murmurs normal S1-S2 Respiratory: No distress clear to auscultation bilaterally chest nontender Abdomen: Soft nontender nondistended normal bowel sounds no masses Back: Nontender Extremity: Nontender no edema Skin: Normal color no rash Neuro: alert orientated ?3 CN II-XII intact normal strength sensation reflexes gait cerebellar Psych: Normal affect normal mood Test Results: EKG shows a sinus bradycardia rate of 59. CBC and BMP glucose 142 and BUN 25 with guarding 1.4. Urinalysis is nitrate and leukocyte esterase positive. Microscopic with 4+ bacteria 5-10 red blood cells and 0-5 white cells. Troponin negative. Chest x-ray normal mediastinal silhouette. Emergency Department Course and Treatment: Patient has had no events on the monitor. Urine was sent for culture. Based on her culture in August we will place her on Keflex. I spoke with her primary care physician Dr. Sutton was happy to follow-up with the patient. Family is comfortable with our plan. Impression: 1. Syncope 2. UTI This note was generated with [employer] software. It may contain incorrect words, spelling, and punctuation that were not noted in review of the chart prior to signing ED Disposition - Plan for ED Patient: Disposition: Home or Assisted Living Chief Complaint: Syncope Instructions: ED Fainting Unkn Cause Prescriptions: Cephalexin [Keflex] 500 mg PO Q12 #14 capsule Referrals: Sophia Sutton MD [Primary Care Provider] - (call to arrange follow up)
[2018-11-02 15:08] VITALS: BP 153/61; PULSE 77; RESP 16; O2SAT 96
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
--- NOTE | 2018-11-03 11:43 | CM.ED ---
SOCIAL WORK NOTE NURSING DISCUSSED CONCERNS WITH 'S FRUSTRATIONS WITH PT DURING ED VISIT YESTERDAY. NURSING NOTED WAS FORCEFUL WITH PT. FAMILY REPORTED PT WITH SUN DOWNERS AND NURSING EXPLAINED POSSIBLE INCREASE IN AGITATION D/T FOREIGN ENVIRONMENT. NURSING REQUESTING THIS WORKER FOLLOW UP WITH APS D/T SAFETY CONCERNS FOR PT IN THE HOME. CALL TO [facility]. REPORT MADE TO JUAN M. JUAN M TO FOLLOW UP. LYDIA LAMAR, ENVIRONMENTAL SAMPLING TECHNICIAN, [employer].
== END 2018-11-02 15:22 | disposition home or self-care (01) ==
PROVIDERS: Emergency Provider Emergency Medicine; Family Provider Family Medicine; PCP Family Medicine
DX: R55 Syncope and collapse (principal); N39.0 Urinary tract infection, site not specified; I10 Essential (primary) hypertension; Z87.891 Personal history of nicotine dependence; R00.1 Bradycardia, unspecified
CPT/HCPCS: 71046; 80048; 81001; 84484; 85025; 87077; 87086; 87088; 87186; 93005; 99284; A4216

== ENCOUNTER → 2019-01-12 14:19 | Outpatient (CLI) | payer MEDICARE, BC, SELFPAY ==
[2019-01-12 16:24] LABS: Anion Gap 7 (5-15); BUN 28 mg/dL (7-18); BUN/Creat Ratio 23.7 RATIO (10-20); Calcium,Total 8.5 mg/dL (8.5-10.1); Chloride 105 mmol/L (98-107); Creatinine, Serum 1.18 mg/dL (0.55-1.02); EST Glomerular Filtration Rate 46 mL/min (>60); Est Glom Filt Rate - Afr Amer 56 mL/min (>60); Glucose 108 mg/dL (74-106); Potassium 4.4 mmol/L (3.5-5.1); Sodium Level 136 mmol/L (136-145)
== END ==
PROVIDERS: Family Provider Family Medicine; PCP Family Medicine; Referring Provider Family Medicine; Visit Provider Family Medicine
DX: I10 Essential (primary) hypertension (principal)
CPT/HCPCS: 36415; 80048

== ENCOUNTER 2019-05-01 11:16 | Emergency (ER) | payer MEDICARE, BC, SELFPAY ==
[2019-05-01 11:20] VITALS: BP 128/76; PULSE 88; RESP 18; TEMP 36.7; O2SAT 98; BMI 24.2
--- NOTE | 2019-05-01 11:29 | ED.VISSUMM ---
- ER Visit Summary Date of Service: 05/01/19 Chief Complaint: Possible seizure History of Present Illness: The patient is a 83 F who presents the emergency room following a possible seizure. Family notes she has a history of dementia and provides the history. Daughter was walking her down the stairs when all of a sudden she moaned she went rigid her arms were up by her chest and she was shaking she fell backwards striking her head and her right elbow. Shaking continued for approximately 10 minutes and then she went limp and her eyes were closed. She was breathing heavily. In route to the hospital the patient was improving and per family now seems to be comfortable and near baseline. No history of seizures. Physical Examination: Afebrile vital signs stable Gen: Well-nourished well-developed Head: Normocephalic atraumatic Eyes: Perrl EOMI ENT: TMs clear no rhinorrhea moist mucous membranes Neck: Supple no lymphadenopathy no JVD nontender CVS: Regular rate rhythm no murmurs normal S1-S2 Respiratory: No distress clear to auscultation bilaterally chest nontender Abdomen: Soft nontender nondistended normal bowel sounds no masses Back: Nontender Extremity: Nontender no edema small 1 cm skin tear to the right elbow Skin: Normal color no rash Neuro: alert not orientated not speaking difficult to follow commands moves all extremities x4 Test Results: White count is normal hemoglobin 11.3. CMP BUN 24 creatinine 1.24. Lactic acid 6.5. Urinalysis 3+ bacteria 0-5 white cells positive nitrates. CT brain negative chest x-ray negative. Emergency Department Course and Treatment: Patient was observed here in the department. She began to have some agitation which is not uncommon for her and home treatment is an extra dose of Seroquel which we administered. Also gave her a liter of fluids to help clear the lactic acid. We will culture the urine and in the meantime treat it. At this point this is a first-time seizure with a normal CT brain normal electrolytes. I do not think we need to start and a epileptics. Discussing with the family they are more comfortable in keeping her at home given her dementia and that she typically does better there. We talked about the risk benefits of admission. If she has another seizure she will need to be admitted. Family is comfortable with this plan. They have requested a liquid medication for the UTI. Place her on Keflex. Wound care to the skin tear Impression: 1. New onset seizure 2. Skin tear of the right forearm 3. Urinary tract infection This note was generated with [employer] dictation software. It may contain incorrect words, spelling, and punctuation that were not noted in review of the chart prior to signing ED Disposition - Plan for ED Patient: Disposition: Home or Assisted Living Instructions: SEIZURE, New Onset, Unk Cause [Adult], Urinary Tract Infections in Women Prescriptions: Cephalexin Suspension [Keflex Suspension] 500 mg PO TID 5 Days #150 ml Prescription Printed Referrals: Sophia Sutton MD [Primary Care Provider] - 3-5 Days
--- NOTE | 2019-05-01 11:32 | RAD_ITS ---
STUDY: X-RAY CHEST REASON FOR EXAM: Female, 83 years old. Altered level of consciousness. TECHNIQUE: Single AP portable view of the chest. COMPARISON: 11/02/2018. FINDINGS: The lungs are clear and expanded. There is no demonstrated pleural abnormality. Normal size heart. Normal mediastinum and jayshree. Normal visualized pulmonary arteries. There is atherosclerotic tortuosity of the aortic arch and descending thoracic aorta. The bony structures are unchanged. There is no demonstrated abnormality of the visualized soft tissue structures of the upper abdomen. RAD/Chest 1 View (Portable) IMPRESSION: No active pulmonary disease. Electronically Signed: David Roa MD at 12:07 EDT Tel , Service support ,
--- NOTE | 2019-05-01 11:32 | CT_ITS ---
STUDY: CT BRAIN WITHOUT CONTRAST REASON FOR EXAM: Female, 83 years old. Status post fall. Possible seizure. RADIATION DOSAGE (If Supplied By Facility): CTDIvol = ( 44.99 ) mGy, DLP = ( 796.11 ) mGycm TECHNIQUE: Transaxial CT imaging of the brain was performed without administration of intravenous contrast material. Individualized dose optimization techniques were used for this CT. COMPARISON: 05/01/2019. FINDINGS: Normal soft tissue structures. Normal calvarium. There is moderate cerebral atrophy with widening of the extra-axial spaces and ventricular dilatation. There are areas of decreased attenuation within the white matter tracts of the supratentorial brain, consistent with microvascular disease changes. Normal basal ganglia and thalami. Normal brainstem. Normal cerebellum. There is no intracranial hemorrhage. There are no findings of an acute ischemic infarction. Normal visualized paranasal sinuses. CT/Brain/Head without Contrast IMPRESSION: Chronic involutional changes of the brain. No acute intracranial process. Electronically Signed: David Roa MD at 12:18 EDT Tel , Service support ,
--- NOTE | 2019-05-01 11:32 | EKG12_ITS ---
Test Reason : ALTERED LOC Blood Pressure : / mmHG Vent. Rate : 079 BPM Atrial Rate : 079 BPM P-R Int : 178 ms QRS Dur : 068 ms QT Int : 400 ms P-R-T Axes : 074 -16 051 degrees QTc Int : 458 ms Normal sinus rhythm Nonspecific T wave abnormality Abnormal ECG Confirmed by JERAMY GRULLON, KAJAL ([id number]), subeditor ROCIO GAGE ([id number]) on 05/04/2019 2:10:51 PM Referred By: GERALDO Confirmed By:KAJAL DESHPANDE MD
[2019-05-01 11:45] LABS: Absolute Lymphocyte Count 2.71 X10^3/ul (0.83-4.51); Absolute Neutrophil Count 3.6 X10^3/uL (2.0-7.7); Basophil# 0.03 X10^3/uL; Basophil% 0.4 % (0-1); Eosinophil# 0.34 X10^3/uL; Eosinophils% 4.8 % (0-5); Hematocrit 33.4 % (37-47); Hemoglobin 11.3 g/dl (12.0-15.0); Lymphocyte # 2.71 X10^3/ul (4.0); Lymphocyte % 38.2 % (19-41); Mean Corp Hgb Conc 33.8 g/gl (32-36); Mean Corpuscular Hgb 32.6 pg (27.0-32.0); Mean Corpuscular Volume 96.3 fL (81-99); Mean Platelet Vol. 8.5 fl (6.2-12.0); Monocyte# 0.42 X10^3/uL; Monocyte% 5.9 % (0-10); Neutrophil # 3.59 X10^3/uL (2.7-7.7); Neutrophil % 50.6 % (47-70); Platelet Count 251 K/mm3 (150-450); RBC Distribution Width SD 46.7 fl (35.1-43.9); Red Blood Count 3.47 M/mm3 (4.2-5.4); White Blood Count 7.1 K/mm3 (4.4-11.0)
[2019-05-01 11:47] LABS: POSITIVE COUNT NO; POSITIVE DIFFERENTIAL NO; POSITIVE MORPHOLOGY NO
[2019-05-01 11:54] LABS: International Normalized Ratio 1.1; Partial Thromboplast Time 30.5 Seconds (24.1-36.2); Prothrombin Time (Protime)PT. 14.2 SECONDS (11.7-14.9)
[2019-05-01 12:04] LABS: AST(SGOT) 21 U/L (15-37); Alanine Aminotransfer ALT/SGPT 19 U/L (13-56); Albumin, Serum 3.8 g/dL (3.2-5.0); Alkaline Phosphatase 59 U/L (45-117); Anion Gap 12 (5-15); BUN 24 mg/dL (7-18); BUN/Creat Ratio 19.4 RATIO (10-20); Bilirubin, Direct 0.09 mg/dL (0.00-0.30); Calcium,Total 8.7 mg/dL (8.5-10.1); Chloride 107 mmol/L (98-107); Creatinine, Serum 1.24 mg/dL (0.55-1.02); EST Glomerular Filtration Rate 44 mL/min (>60); Est Glom Filt Rate - Afr Amer 53 mL/min (>60); Estimated Creatinine Clearance 25.94 ml/min; Globulin 3.7 g/dL (2.2-4.2); Glucose 152 mg/dL (74-106); Potassium 3.5 mmol/L (3.5-5.1); Protein, Total 7.5 g/dL (6.4-8.2); Sodium Level 137 mmol/L (136-145)
[2019-05-01 12:07] LABS: Mucous, Urine 0 SEEN /hpf (<or=2+); Red Blood Cells-Urine 0 SEEN /hpf (0-5)
[2019-05-01 12:10] LABS: Color, Urine Yellow (Yellow); Glucose, Dipstick Normal (Normal); Ketone-Dipstick Negative (Negative); Leukocyte Esterase-Dipstick 25 /ul (Negative); Nitrite-Dipstick Positive (Negative); Occult Blood-Urine 50 /ul (Negative); Protein-Dipstick 15 mg/dl (Negative); Specific Gravity, Urine 1.025 (1.002-1.030); Urine Bilirubin Dipstick Negative (Negative); Urine Clarity Sl. Cloudy (Clear); Urine Urobilinogen Normal (Normal)
[2019-05-01 12:13] LABS: White Blood Cells 0-5 SEEN /hpf (0-5)
[2019-05-01 12:14] LABS: Bacteria 3+ /hpf (None Seen); Squamous Epithelial Cells - UA 0-5 SEEN /hpf (5-10)
[2019-05-01 12:25] VITALS: PULSE 85; RESP 18; O2SAT 97
[2019-05-01 12:25] LABS: Lactic Acid 6.5 mmol/L (0.4-2.0)
[2019-05-01] MEDS: 0.9% Normal Saline 1,000 ML 999 ML IV (12:58)
[2019-05-01] MEDS: QUEtiapine 25 MG Tablet PO (12:58)
[2019-05-01 14:15] VITALS: BP 104/68; PULSE 85
[2019-05-01 15:40] LABS: Reflex Lactate? Y
== END 2019-05-01 14:15 | disposition home or self-care (01) ==
PROVIDERS: Emergency Provider Emergency Medicine; Family Provider Family Medicine; PCP Family Medicine
DX: R56.9 Unspecified convulsions (principal); S51.811A Laceration without foreign body of right forearm, initial encounter; W10.9XXA Fall (on) (from) unspecified stairs and steps, initial encounter; Y93.01 Activity, walking, marching and hiking; Y92.9 Unspecified place or not applicable; N39.0 Urinary tract infection, site not specified; F03.90 Unspecified dementia, unspecified severity, without behavioral disturbance, psychotic disturbance, mood disturbance, and anxiety
CPT/HCPCS: 70450; 71045; 80048; 80076; 81001; 83605; 84484; 85025; 85610; 85730; 87086; 87088; 87186; 93005; 96360; 99285; J7030; A4216